=== PATIENT | female | born 1990 | race American Indian/Alaskan Native ===

== ENCOUNTER 2017-12-09 07:14 | Emergency (ER) | payer SELFPAY ==
[2017-12-09 07:27] VITALS: BP 130/80
[2017-12-09] MEDS ORDERED: TYLENOL PO ONE (09:20)
--- NOTE | 2017-12-09 09:22 | Emergency Department Report ---
ED Female HPI - General Chief complaint: Urogenital-Female Stated complaint: PELVIC PAIN Time Seen by Provider: 12/09/17 09:17 Source: patient, EMS Mode of arrival: Wheelchair Limitations: No Limitations - History of Present Illness Initial comments: Patient is 27 years old female with no significant past medical history. Patient presented to the ER complaining of abdominal/pelvic pain, crampy in nature started this morning. Patient stated that she started having her cycle Today. Patient stated that she does have an irregular cycle She denied any fever nausea vomiting or diarrhea. MD Complaint: pelvic pain -: This morning Severity: moderate Quality: cramping Consistency: intermittent Worsens with: menstrual period Associated Symptoms: denies other symptoms - Related Data Previous Rx's Medication Instructions Recorded Last Taken Type Amoxicillin [Amoxicillin TAB] 875 mg PO BID #20 tablet 06/12/14 Unknown Rx methylPREDNISolone [Medrol Dose 1 tab PO DAILY #1 packet 06/12/14 Unknown Rx Tylor] Allergies Allergy/AdvReac Type Severity Reaction Status Date / Time No Known Allergies Allergy Verified 12/09/17 07:25 ED Review of Systems ROS: Stated complaint: PELVIC PAIN Other details as noted in HPI Comment: All other systems reviewed and negative Constitutional: denies: chills, fever Respiratory: denies: cough, orthopnea, shortness of breath, SOB with exertion Gastrointestinal: abdominal pain. denies: nausea, vomiting, diarrhea, constipation, hematemesis, hematochezia Genitourinary: abnormal menses. denies: urgency, frequency Skin: denies: lesions Neurological: denies: headache, weakness ED Past Medical Hx - Past Medical History Hx Hypertension: No Hx Diabetes: No Hx Deep Vein Thrombosis: No Hx Renal Disease: No Hx Sickle Cell Disease: No Hx Seizures: No Hx Asthma: No Hx HIV: No Additional medical history: Right Ovarian Cyst. - Social History Smoking Status: Never Smoker Substance Use Type: None - Medications Home Medications: Home Medications Medication Instructions Recorded Confirmed Last Taken Type Amoxicillin [Amoxicillin TAB] 875 mg PO BID #20 tablet 06/12/14 Unknown Rx methylPREDNISolone [Medrol Dose 1 tab PO DAILY #1 packet 06/12/14 Unknown Rx Tylor] ED Physical Exam - General Limitations: No Limitations General appearance: alert, in no apparent distress - Head Head exam: Present: atraumatic, normocephalic, normal inspection - Eye Eye exam: Present: normal appearance - ENT ENT exam: Present: normal exam, normal orophraynx, mucous membranes moist - Neck Neck exam: Present: normal inspection, full ROM. Absent: tenderness, meningismus - Respiratory Respiratory exam: Present: normal lung sounds bilaterally - Cardiovascular Cardiovascular Exam: Present: regular rate, normal rhythm, normal heart sounds - GI/Abdominal GI/Abdominal exam: Present: soft, normal bowel sounds. Absent: distended, tenderness, guarding, rebound, rigid, organomegaly, mass, bruit, pulsatile mass - Extremities Exam Extremities exam: Present: normal inspection, full ROM, normal capillary refill. Absent: pedal edema, calf tenderness - Back Exam Back exam: Present: normal inspection, full ROM. Absent: tenderness, CVA tenderness (R), CVA tenderness (L), muscle spasm, paraspinal tenderness - Neurological Exam Neurological exam: Present: alert, oriented X3, CN II-XII intact, normal gait, reflexes normal - Skin Skin exam: Present: warm, intact, normal color ED Course Vital Signs 12/09/17 07:25 Temperature 99.2 F Pulse Rate 98 H Respiratory 16 Rate Blood Pressure 130/80 O2 Sat by Pulse 98 Oximetry Critical care attestation.: If time is entered above; I have spent that time in minutes in the direct care of this critically ill patient, excluding procedure time. ED Disposition Clinical Impression: UTI (urinary tract infection), Dysmenorrhea Disposition: TO HOME OR SELFCARE Is pt being admited?: No Condition: Stable Instructions: Dysmenorrhea (ED), Urinary Tract Infection in Women (ED) Referrals: PRIMARY CARE, [Primary Care Provider] - 3-5 Days
[2017-12-09 10:33] LABS: HCG Qualitative,Urine Negative (Negative)
[2017-12-09 10:34] LABS: Bacteria,Urine 4+ /HPF (Negative); Bilirubin,Urine NEG (Negative); Blood,Urine LG (Negative); Color,Urine Red (Yellow); Urobilinogen,Urine < 2.0 mg/dL (<2.0)
[2017-12-09 10:39] LABS: WBC,Urine > 182.0 /HPF (0.0-6.0)
== END 2017-12-09 11:45 | disposition home or self-care (01) ==
LOC: ED 07:14
DX: N39.0 Urinary tract infection, site not specified (principal); N94.6 Dysmenorrhea, unspecified
CPT/HCPCS: 81001; 81025; 99283